=== PATIENT | female | born 1980 | race Caucasian/White ===

== ENCOUNTER → 2019-05-27 | Outpatient (CLI) | payer OTHER ==
[2019-05-28 20:06] LABS: CHLAMYDIA TRACHOMATIS, NAA Negative (Negative); NEISSERIA GONORRHOEAE, NAA Negative (Negative)
== END ==
LOC: LAB SHORT 09:45 → LAB 09:45
PROVIDERS: Nurse Practitioner Family
DX: Z01.419 Encounter for gynecological examination (general) (routine) without abnormal findings (principal)
CPT/HCPCS: 87070; 87106; 87205; 87491; 87591; 88142

== ENCOUNTER → 2020-06-26 | Outpatient (CLI) | payer OTHER ==
[~2020-06-26] MED LIST: Inderal40 MG; OMEPRAZOLE20 MG PO; TRAM50 PO
== END | disposition home or self-care (01) ==
LOC: LAB SHORT 11:11 → PLD 11:11 → LAB SHORT 06-27 11:19
DX: J06.9 Acute upper respiratory infection, unspecified (principal); Z20.828 Contact with and (suspected) exposure to other viral communicable diseases
CPT/HCPCS: U0003

== ENCOUNTER → 2021-12-26 | Outpatient (CLI) | payer OTHER ==
[2021-12-27 10:00] LABS: Candida species (DNA Probe) Positive (NEGATIVE); G. vaginalis (DNA Probe) Positive (NEGATIVE); T. vaginalis (DNA Probe) Negative (NEGATIVE)
== END | disposition home or self-care (01) ==
LOC: LAB SHORT 16:36
PROVIDERS: Nurse Practitioner Family
DX: N89.8 Other specified noninflammatory disorders of vagina (principal)
CPT/HCPCS: 87480; 87510; 87660

== ENCOUNTER → 2022-03-14 | Outpatient (CLI) | payer OTHER ==
[2022-03-15 16:11] LABS: HPV 16 Negative (Negative); HPV 18 Negative (Negative); HPV OTHER HR TYPES Negative (Negative)
== END | disposition home or self-care (01) ==
LOC: LAB 12:00 → LAB SHORT 12:00
PROVIDERS: Nurse Practitioner Family
DX: Z01.411 Encounter for gynecological examination (general) (routine) with abnormal findings (principal); B37.3 Candidiasis of vulva and vagina
CPT/HCPCS: 87070; 87147; 87205; 87624; G0123

== ENCOUNTER 2022-05-24 05:51 | Day surgery (SDC) | payer BC, OTHER ==
[~2022-05-24] VITALS: Ht 167.6 cm; Wt 96.7 kg
[~2022-05-24 05:51] MED LIST changes: +ACYC400 PO; +ALBU90OI INH; +Athenol325 MG PO; +CYCL10 PO; +EXEDRIN MIGRAINE; +FLUT1DIS2; +IPRAT-ALBUT 0.5-3 ML INH; +ONDA4 PO; +PROG100 PO; +Percocet 5-3251 EACH PO; +SERT25 PO; +ZYRTEC10 M1 PO
--- NOTE | 2022-05-24 09:44 | NUR ---
05/24/22 0944 Maikol Kearney 400CC URINE IN [place] BAG AT END OF CASE AT TIME OF DC WITH 400 CC NACL IRRIGATION
--- NOTE | 2022-05-24 15:21 | NUR ---
1515- dcd to home via w/c, driving
== END 2022-05-24 15:00 | disposition home or self-care (01) ==
LOC: ORSCMMR 05:51 → ORD 10:15 → BC 10:44 → ORSCMMR 15:00
PROVIDERS: Obstetrics & Gynecology
PROC: 8E0W4CZ Robotic Assisted Procedure of Trunk Region, Percutaneous Endoscopic Approach (ICD-10-PCS; principal; 2022-05-24 07:30)
PROC: 0UT74ZZ Resection of Bilateral Fallopian Tubes, Percutaneous Endoscopic Approach (ICD-10-PCS; principal; 2022-05-24 07:30)
PROC: 0UT94ZZ Resection of Uterus, Percutaneous Endoscopic Approach (ICD-10-PCS; principal; 2022-05-24 07:30)
DX: N92.1 Excessive and frequent menstruation with irregular cycle (principal); N81.2 Incomplete uterovaginal prolapse; D25.9 Leiomyoma of uterus, unspecified; J45.909 Unspecified asthma, uncomplicated; K21.9 Gastro-esophageal reflux disease without esophagitis; Z87.891 Personal history of nicotine dependence; F41.8 Other specified anxiety disorders; F43.10 Post-traumatic stress disorder, unspecified; Z79.899 Other long term (current) drug therapy; E66.9 Obesity, unspecified; Z68.34 Body mass index [BMI] 34.0-34.9, adult
CPT/HCPCS: 58571; S2900; 88307; A9270; J0690; J1100; J1885; J2250; J2270; J2405; J2704; J2795; J3010; J7120

== ENCOUNTER → 2022-11-27 | Outpatient (CLI) | payer BC, OTHER ==
[2022-11-28 10:24] LABS: G. vaginalis (DNA Probe) Negative (NEGATIVE); T. vaginalis (DNA Probe) Negative (NEGATIVE)
[2022-11-28 10:25] LABS: Candida species (DNA Probe) Negative (NEGATIVE)
== END | disposition home or self-care (01) ==
LOC: LAB 09:03 → LAB SHORT 09:03
PROVIDERS: Nurse Practitioner Family
DX: N89.8 Other specified noninflammatory disorders of vagina (principal)
CPT/HCPCS: 87480; 87510; 87660